=== PATIENT | female | born 1955 | race African-American/Black ===

== ENCOUNTER 2020-11-17 06:11 | Outpatient (REF) | payer MEDICARE, BC, MEDICAID, SELFPAY | END 2020-11-17 06:12 | disposition home or self-care (01) | LOC: HO.LAB 06:11 | PROVIDERS: PCP Hospitalist; Visit Provider Internal Medicine | DX: Z20.822 Contact with and (suspected) exposure to COVID-19 (principal) | CPT/HCPCS: 36415; C9803; U0003 ==

== ENCOUNTER → 2022-10-19 15:06 | Outpatient (BNVA) | payer MEDICARE, MEDICAID, BC, SELFPAY | PROVIDERS: Visit Provider Nurse Practitioner Family | DX: R51.9 Headache, unspecified (principal); R25.2 Cramp and spasm; R42 Dizziness and giddiness; I10 Essential (primary) hypertension; E78.5 Hyperlipidemia, unspecified; F41.8 Other specified anxiety disorders | CPT/HCPCS: 99202 ==

== ENCOUNTER → 2023-03-13 14:24 | Outpatient (BNVA) | payer MEDICARE, MEDICAID, SELFPAY | PROVIDERS: Visit Provider Nurse Practitioner Family | DX: R51.9 Headache, unspecified (principal); R25.2 Cramp and spasm; R42 Dizziness and giddiness | CPT/HCPCS: 99212 ==

== ENCOUNTER 2023-09-13 11:07 | Outpatient (AMB) | payer MEDICARE, MEDICAID, SELFPAY ==
--- NOTE | 2023-09-13 11:19 | MHC.OFFVIS ---
Intake Vital Signs 09/13/23 11:21 Height 5 ft Weight 138 lb BMI 26.9 BP 110/76 Blood Pressure Location Rt brachial Position Sitting Intake Visit Reasons: 6m follow up dizziness/giddiness/syncope - Lvm Intake Note: Patient presents for 6 month follow up dizziness giddiness. Patient states i had to go to the ER for high blood pressure but i was eating alot of salt so now im watching my sodium and im back to drinking water. Allergies No Known Allergies Allergy (Verified 09/13/23 11:22) Medication List - Last Reconciled 09/13/23 by TANVIR Jose amlodipine 2.5 mg PO DAILY cyanocobalamin (vitamin B-12) (Vitamin B-12) 500 mcg PO DAILY gabapentin 100 - 200 mg (1 - 2 x 100 mg) PO BEDTIME 30 days hydrochlorothiazide 12.5 mg PO DAILY lisinopril 40 mg PO DAILY lorazepam 0.5 mg PO DAILY PRN prazosin 1 mg PO BID thiamine HCl (vitamin B1) 100 mg PO DAILY trazodone 100 mg PO BEDTIME venlafaxine ER 75 mg PO QAM HPI HPI Comments History of Present Illness Details 68-yr-old female presents for f/u visit. Pt reports she had a mild case of Covid-19 over the summer. She did stop eating her snack of salted chips, increasing water intake, trying to eat more vegetables and beans. Since, she has not been feeling dizzy. She has not been having any sharp pains. She is compliant w/ Gabapentin- tolerating well. [facility] Medical History Depression HLD (hyperlipidemia) HTN (hypertension) Insomnia Low back pain Syncope Family History Father Tumors Mother Anxiety Hypertension COPD (chronic obstructive pulmonary disease) Social History Alcohol intake: current Alcohol intake frequency: holidays/special occasions only Patient Tobacco Use Status: Former Tobacco user Quit Date: 1980 Review of Systems Const All systems reviewed & are unremarkable except as noted in HPI and below Physical Exam Vital Signs: Last Vital Signs BP 110/76 09/13/23 11:21 BMI result Body Mass Index 26.9 Const General: cooperative and no acute distress Orientation/consciousness: patient oriented x3 HEENT Head: Yes normocephalic Resp Effort & Inspection: normal respiratory effort and able to speak in complete sentences Neuro General: patient oriented x3, gait normal and CN's II-XI intact bilaterally Cognition (Neuro): normal cognition Motor exam (neuro): 5/5 motor strength present throughout Psych Appearance: grossly normal Mental Status: mental status grossly normal Speech and movement: Normal speech and movement present Affect: normal affect Attitude: cooperative Thought process: Normal thought process present Thought content: Normal thought content present Insight: Good insight present (Psych) Judgement: Good judgement present (Psych) Assessment & Plan Assessment & Plan (1) Headache: Comment: episodic short-lasting headaches w/o autonomic or migraine s/s. Code(s): R51.9 - Headache, unspecified (2) Leg cramps: Comment: BLE, L > R Code(s): R25.2 - Cramp and spasm (3) Dizziness: Code(s): R42 - Dizziness and giddiness Plan Dizziness improved- continue to monitor. Continue Gabapentin 100-200mg qhs- for leg cramps and stabbing headaches. May use Tylenol prn. F/u in 6 months or sooner prn new or worsening s/s. Medications: Refilled gabapentin 100 - 200 mg (1 - 2 x 100 mg) PO BEDTIME 60 caps 3RF 30 days Coding Level of Care Code Est Pt Level 3 (34192) Diagnoses Headache R51.9 Leg cramps R25.2 Dizziness R42
[2023-09-13 11:21] VITALS: BP 110/76; BMI 26.9
== END 2023-09-13 11:44 | disposition home or self-care (01) ==
PROVIDERS: Visit Provider Nurse Practitioner Family
DX: R51.9 Headache, unspecified (principal); R25.2 Cramp and spasm; R42 Dizziness and giddiness
CPT/HCPCS: 99213

== ENCOUNTER → 2023-09-13 11:07 | Outpatient (BNVA) | payer MEDICARE, MEDICAID, SELFPAY | PROVIDERS: Visit Provider Nurse Practitioner Family | DX: R51.9 Headache, unspecified (principal); R25.2 Cramp and spasm; R42 Dizziness and giddiness | CPT/HCPCS: 99212 ==

== ENCOUNTER 2024-03-13 14:41 | Outpatient (AMB) | payer OTHER, MEDICARE, SELFPAY ==
--- NOTE | 2024-03-13 14:55 | A.OFFVIS_ITS ---
Vital Signs 03/13/24 15:00 Height 5 ft Weight 138 lb BMI 26.9 BP 122/70 Blood Pressure Location Lt brachial Position Sitting Pulse 98 Pulse Source Pulse Oximeter Pulse Oximetry (%) 97 Oxygen Delivery Method Room Air Intake Visit Reasons: 6 mnts f/u for dizziness/giddiness/syncope-Con Intake Note: Patient presents for 6 months f/u. Balance under control and drinking water for the dizziness. Sometimes feeling sharp pain on top of head. Allergies No Known Allergies Allergy (Verified 03/13/24 14:59) Medication List - Last Reconciled 03/13/24 by TANVIR Jose amlodipine 2.5 mg PO DAILY cyanocobalamin (vitamin B-12) (Vitamin B-12) 500 mcg PO DAILY gabapentin 100 - 200 mg (1 - 2 x 100 mg) PO BEDTIME 30 days hydrochlorothiazide 12.5 mg PO DAILY lisinopril 40 mg PO DAILY lorazepam 0.5 mg PO DAILY PRN prazosin 1 mg PO BID thiamine HCl (vitamin B1) 100 mg PO DAILY trazodone 100 mg PO BEDTIME venlafaxine ER 75 mg PO QAM HPI Comments Details: 68-yr-old female presents for f/u visit. Pt denies any significant interval medical changes. Pt states her BP has been better controlled- she was recently able to stop her amlodipine and hydrochlorothiazide. BP is normotensive today. She notes she had had a wt loss through diet- but still trying to eat better and minimize sweets. Pt is active at work- walking a lot at the [employer]. She may occasionally off-balance. No interval falls. Every now and then, she has a sharp head pain. Not as frequent as before. She is taking Gabapentin 100mg qhs- finds this helpful. Sleeping well. May have an occasional leg/foot cramps or throbbing- at rest but more so when in bed. Elevating her legs helps the throbbing pain. Denies weakness. [facility] Medical History Depression HLD (hyperlipidemia) HTN (hypertension) Insomnia Low back pain Syncope Family History Father Tumors Mother Anxiety Hypertension COPD (chronic obstructive pulmonary disease) Social History Alcohol intake: current Alcohol intake frequency: holidays/special occasions only Patient Tobacco Use Status: Former Tobacco user Quit Date: 1980 Review of Systems Const All systems reviewed & are unremarkable except as noted in HPI and below Physical Exam Vital Signs: Last Vital Signs Pulse 98 03/13/24 15:00 BP 122/70 03/13/24 15:00 Pulse Ox 97 03/13/24 15:00 Oxygen Delivery Method Room Air 03/13/24 15:00 BMI result Body Mass Index 26.9 Const General: cooperative and no acute distress Orientation/consciousness: patient oriented x3 HEENT Head: Yes normocephalic Resp Effort & Inspection: normal respiratory effort and able to speak in complete sentences Neuro General: patient oriented x3, gait normal and CN's II-XI intact bilaterally Cognition (Neuro): normal cognition Motor exam (neuro): 5/5 motor strength present throughout Psych Appearance: grossly normal Mental Status: mental status grossly normal Speech and movement: Normal speech and movement present Affect: normal affect Attitude: cooperative Thought process: Normal thought process present Thought content: Normal thought content present Insight: Good insight present (Psych) Judgement: Good judgement present (Psych) Assessment & Plan Assessment & Plan (1) Headache: Comment: episodic short-lasting headaches w/o autonomic or migraine s/s. Code(s): R51.9 - Headache, unspecified Category: Medical (2) Leg cramps: Comment: BLE, L > R Code(s): R25.2 - Cramp and spasm Category: Medical (3) Dizziness: Code(s): R42 - Dizziness and giddiness Category: Medical Plan Dizziness improved- continue to monitor. Continue Gabapentin 100 qhs, may increase to 200mg qhs- for leg cramps and stabbing headaches. May use Tylenol prn. Continue increasing physical activity. F/u in 9 months or sooner prn new or worsening s/s. Coding Level of Care Code Est Pt Level 4 (13906) Diagnoses Headache R51.9 Leg cramps R25.2 Dizziness R42
[2024-03-13 15:00] VITALS: BP 122/70; PULSE 98; O2SAT 97; BMI 26.9
== END 2024-03-13 15:30 | disposition home or self-care (01) ==
PROVIDERS: Visit Provider Nurse Practitioner Family
DX: R51.9 Headache, unspecified (principal); R25.2 Cramp and spasm; R42 Dizziness and giddiness
CPT/HCPCS: 99214

== ENCOUNTER → 2024-03-13 14:41 | Outpatient (BNVA) | payer OTHER, MEDICARE, SELFPAY | PROVIDERS: Visit Provider Nurse Practitioner Family ==